=== PATIENT | female | born 1950 | race Hispanic/Latino ===

== ENCOUNTER → 2017-11-05 | Outpatient (CLI) | payer MEDICARE ==
[~2017-11-05] MED LIST: ALLO100T PO; AMITRIPTYLINE PO; AMLO5TAB5 PO; BENA40TA67 PO; CARB1DRO6 OU; FURO20TA4 PO; GLIP5TAB97 PO; INSLAN SQ; LIDOCAINE PATCH5% TD; MAGN400O17 PO; METFORMIN PO; PANT40SU PO; POTASSIUM CL ER PO; VICTOZA SQ; ZOLP10TA2 PO
== END | disposition home or self-care (01) ==
LOC: RAH 08:21
PROVIDERS: ATTEND Internal Medicine Gastroenterology
DX: K74.60 Unspecified cirrhosis of liver (principal); R16.1 Splenomegaly, not elsewhere classified
CPT/HCPCS: 76700; 93975

== ENCOUNTER → 2019-03-10 | Outpatient (CLI) | payer MEDICARE, OTHER ==
[2019-03-10 14:36] LABS: CREATININE 1.1 mg/dL (0.5-1.5)
== END | disposition home or self-care (01) ==
LOC: LAB 13:21
PROVIDERS: ATTEND Internal Medicine Gastroenterology
DX: R10.11 Right upper quadrant pain (principal)
CPT/HCPCS: 36415; 82565; 84520

== ENCOUNTER → 2019-07-16 | Outpatient (CLI) | payer MEDICARE | END | disposition home or self-care (01) | LOC: RAH 11:32 | PROVIDERS: ATTEND Internal Medicine Gastroenterology | DX: D73.4 Cyst of spleen (principal); R16.1 Splenomegaly, not elsewhere classified; K74.60 Unspecified cirrhosis of liver | CPT/HCPCS: 76700; 93975 ==

== ENCOUNTER → 2019-08-04 | Outpatient (CLI) | payer MEDICARE | END | disposition home or self-care (01) | LOC: RAH 11:03 | PROVIDERS: ATTEND Internal Medicine Gastroenterology | DX: R10.9 Unspecified abdominal pain (principal); R11.0 Nausea | CPT/HCPCS: 78264; A9541 ==

== ENCOUNTER 2020-05-09 15:20 | Inpatient (IN) | payer MEDICARE ==
[~2020-05-09] VITALS: Ht 149.9 cm; Wt 90.4 kg
[2020-05-09] MEDS ORDERED: ALBUTEROL INHALER 90MCG/INH IH ONE (15:50)
[2020-05-09] MEDS ORDERED: CEFTRIAXONE SODIUM 1 GM ONE (15:51)
[2020-05-09] MEDS ORDERED: AZITHROMYCIN 500MG+NS 250ML 250 ML IV ONE (15:51)
[2020-05-09] MEDS ORDERED: METHYLPREDNISOLONE SOD SUCC 125MG/2ML VIAL ONE (15:51)
[2020-05-09 15:58] LABS: BASOPHILS % (AUTO) 0.4 % (0.0-5.0); EOSINOPHILS % (AUTO) 3.8 % (0.0-8.0); HEMATOCRIT 32.1 % (36-48); LYMPHOCYTES % (AUTO) 16.2 % (21.0-51.0); MEAN CORPUSCULAR HEMOGLOBIN 28.7 pg (27.0-33.0); MEAN CORPUSCULAR HGB CONC 32.4 g/dL (32.0-36.0); MEAN CORPUSCULAR VOLUME 88.7 fL (79-99); MONOCYTES % (AUTO) 8.1 % (3.0-13.0); NEUTROPHILS % (AUTO) 70.9 % (40.0-77.0); PLATELET COUNT (AUTO) 50 K/uL (130-400); RED BLOOD CELL COUNT(AUTO) 3.62 MIL/uL (4.00-5.50); RED CELL DISTRIBUTION WIDTH 15.2 % (11.0-15.5); WHITE BLOOD COUNT (AUTO) 4.7 K/uL (4.8-10.8)
[2020-05-09 16:06] LABS: ABG BASE EXCESS 3.6 mmol/L (-2.0-3.0); ABG HCO3 29.5 mmol/L (21.0-28.0); ABG OXYGEN SATURATION 99.4 % (95.0-99.0); ABG PCO2 49 mmHg (32-45)
[2020-05-09 16:09] LABS: POTASSIUM 3.8 mmol/L (3.5-5.1)
[2020-05-09 16:14] LABS: BILIRUBIN,TOTAL 1.2 mg/dL (0.2-1.0); TOTAL PROTEIN, SERUM 6.2 g/dL (6.0-8.3)
[2020-05-09] MEDS ORDERED: LORAZEPAM 2 MG/ML 1 ML VIAL ONE (16:45)
[2020-05-09 17:00] LABS: PLATELET MORPHOLOGY COMMENT MARKED DECREASE
[2020-05-09] MEDS ORDERED: ENOXAPARIN SODIUM 100 MG/1 ML SQ ONE (17:25)
[2020-05-09 18:29] LABS: ABG BASE EXCESS 3.1 mmol/L (-2.0-3.0); ABG HCO3 28.7 mmol/L (21.0-28.0); ABG OXYGEN SATURATION 99.9 % (95.0-99.0); ABG PCO2 47 mmHg (32-45)
[2020-05-09] MEDS ORDERED: ACETAMINOPHEN 325 MG TAB PO PRN (19:45)
[2020-05-09] MEDS ORDERED: ONDANSETRON HCL 4 MG/2 ML VIAL IVP PRN (19:45)
[2020-05-09 21:55] VITALS: BP 132/96
[2020-05-09] MEDS: ZIPRASIDONE HCL 20 MG CAPSULE PO SCH (23:45)
[2020-05-10] VITALS: BP 134/72
[2020-05-10] MEDS: METHYLPREDNISOLONE SOD SUCC 125MG/2ML VIAL IVP SCH ×3 (00:08→15:51)
--- NOTE | 2020-05-10 00:30 | NUR ---
Patient received from ED accompanied by staff to room 305. Patient transferred from stretcher to bed and made comfortable. Assessment and nursing data base completed. Patient is on Bipap machine and appeared very anxious. [employer] Juan Miguel called and informed. PRN medication ordered, and patient medicated. Continue to monitor.
[2020-05-10] MEDS ORDERED: QUETIAPINE FUMARATE 25 MG TAB ONE (02:29)
[2020-05-10 04:00] VITALS: BP 119/61
--- NOTE | 2020-05-10 06:38 | NUR ---
Patient is resting comfortably post PRN Seroquel as ordered. No acute respiratory distress at this time. Patient is in stable condition.
[2020-05-10 08:00] VITALS: BP 131/78
[2020-05-10] MEDS: QUETIAPINE FUMARATE 25 MG TAB PO SCH ×2 (09:00→21:37)
[2020-05-10] MEDS: ZIPRASIDONE HCL 20 MG CAPSULE PO SCH (11:00)
[2020-05-10 12:00] VITALS: BP 138/81
[2020-05-10] MEDS ORDERED: MAGNESIUM HYDROXIDE 30 ML/UDCUP PO PRN (13:45)
[2020-05-10] MEDS ORDERED: ARTIFICAL TEARS SOL 15 ML OU PRN (13:45)
--- NOTE | 2020-05-10 15:14 | NUR ---
DCP CM unable to meet w/pt called son on facesheet, spoke to Jessee Nathan discussed dc plans. Pt is assist with ADL's, lives at home with provider Terripaulino Sotelo , son lives close by. Pt has oxygen equipments unable to recall company name and has provider 30hrs/wk through [employer]. Feels safe to go back home, as per son pt can dc w/son or back home w/provider, son able to assist with transportation and needs as necessary. DC plan to home once stable. CM to cont to follow up. Addendum: 05/10/20 at 1517 by NENA KAUR LVN CM Amended: Links added.
[2020-05-10 15:44] VITALS: BP 135/64
[2020-05-10] MEDS: CEFTRIAXONE SODIUM 1 GM IVP SCH (15:50)
[2020-05-10] MEDS ORDERED: AZITHROMYCIN 250 MG in SODIUM CHLORIDE 0.9% 100 ML IV SCH (16:00)
[2020-05-10] MEDS ORDERED: LACT10SO9 PO (16:05)
[2020-05-10] MEDS ORDERED: DIAZEPAM 5 MG TABLET PO PRN (16:30)
[2020-05-10] MEDS: INSULIN HUMULIN R 100 UNIT/ML 3ML SQ SCH ×2 (16:30→21:46)
[2020-05-10] MEDS ORDERED: SODIUM CHLORIDE 0.9% 500ML 500 ML IV ONE (17:39)
[2020-05-10] MEDS: METFORMIN HCL 500 MG TABLET PO SCH (17:58)
[2020-05-10] MEDS: AZITHROMYCIN 500MG+NS 250ML 250 ML IV SCH (17:59)
[2020-05-10] MEDS: FUROSEMIDE 10 MG/ML 2ML VIAL IV SCH (17:59)
[2020-05-10 19:00] VITALS: BP 110/60
[2020-05-10] MEDS: ZOLPIDEM TARTRATE 5 MG TAB PO SCH (21:37)
[2020-05-10] MEDS: AMITRIPTYLINE HCL 25 MG TABLET PO SCH (21:37)
[2020-05-10] MEDS: ALLOPURINOL 100 MG TABLET PO SCH (21:37)
[2020-05-11] VITALS: BP 106/50
[2020-05-11] MEDS: FUROSEMIDE 10 MG/ML 2ML VIAL IV SCH ×3 (03:12→22:19)
[2020-05-11 04:00] VITALS: BP 125/77
[2020-05-11] MEDS: INSULIN HUMULIN R 100 UNIT/ML 3ML SQ SCH ×4 (06:07→22:23)
[2020-05-11 06:11] LABS: HEMATOCRIT 29.9 % (36-48); LYMPHOCYTES % (AUTO) 12.2 % (21.0-51.0); MEAN CORPUSCULAR HEMOGLOBIN 28.8 pg (27.0-33.0); MEAN CORPUSCULAR HGB CONC 32.8 g/dL (32.0-36.0); MEAN CORPUSCULAR VOLUME 87.9 fL (79-99); MONOCYTES % (AUTO) 6.3 % (3.0-13.0); PLATELET COUNT (AUTO) 49 K/uL (130-400); RED CELL DISTRIBUTION WIDTH 14.9 % (11.0-15.5); WHITE BLOOD COUNT (AUTO) 3.8 K/uL (4.8-10.8)
[2020-05-11 06:26] LABS: CREATININE 1.2 mg/dL (0.5-1.5); MAGNESIUM 1.7 mg/dL (1.80-2.40); PHOSPHORUS 4.5 mg/dL (2.5-4.9); POTASSIUM 4.4 mmol/L (3.5-5.1)
[2020-05-11 07:10] LABS: ABG BASE EXCESS 3.1 mmol/L (-2.0-3.0); ABG HCO3 28.9 mmol/L (21.0-28.0); ABG OXYGEN SATURATION 98.9 % (95.0-99.0); ABG PCO2 49 mmHg (32-45)
[2020-05-11 08:27] VITALS: BP 119/65
[2020-05-11] MEDS ORDERED: FUROSEMIDE 20 MG TABLET PO SCH (09:00)
[2020-05-11] MEDS: PANTOPRAZOLE SODIUM 40 MG TABLET.DR PO SCH (10:07)
[2020-05-11] MEDS: AMLODIPINE BESYLATE 5 MG TAB PO SCH (10:08)
[2020-05-11] MEDS: GLIPIZIDE XL 5MG TAB PO SCH (10:08)
[2020-05-11] MEDS: METFORMIN HCL 500 MG TABLET PO SCH ×2 (10:08→16:42)
[2020-05-11] MEDS: BENAZEPRIL HCL 10 MG TABLET PO SCH (10:08)
[2020-05-11] MEDS: POTASSIUM CHLORIDE 10 MEQ/TAB.SA PO SCH (10:09)
[2020-05-11] MEDS: DEXAMETHASONE SOD PHOSPHATE 4 MG/ML 1ML VIAL IVP SCH (10:09)
[2020-05-11] MEDS: LIDOCAINE 5% TOPICAL PATCH TP SCH (10:10)
[2020-05-11] MEDS: ALLOPURINOL 100 MG TABLET PO SCH ×2 (10:10→22:18)
[2020-05-11 12:17] VITALS: BP 114/60
[2020-05-11] MEDS ORDERED: LACTULOSE 20 GM/30 ML UDCUP PO PRN (13:00)
[2020-05-11] MEDS ORDERED: FENT1PAT25 TD (13:12)
[2020-05-11] MEDS: CEFTRIAXONE SODIUM 1 GM IVP SCH (14:32)
[2020-05-11] MEDS: MAGNESIUM 2GM PREMIX 50ML 50 ML IV PRN (14:32)
--- NOTE | 2020-05-11 14:50 | NUR ---
TRANSFER REPORT CALLED TO [facility] ON 3RD FLOOR, ROOM READY; PT AWARE OF TRANSFER TO NON COVID FLOOR AND STATES APPROVAL.
[2020-05-11] MEDS: AZITHROMYCIN 500MG+NS 250ML 250 ML IV SCH (16:42)
[2020-05-11 20:05] VITALS: BP 129/72
[2020-05-11] MEDS: ZOLPIDEM TARTRATE 5 MG TAB PO SCH (22:18)
[2020-05-11] MEDS: AMITRIPTYLINE HCL 25 MG TABLET PO SCH (22:18)
[2020-05-11] MEDS: QUETIAPINE FUMARATE 25 MG TAB PO SCH (22:18)
[2020-05-11 23:38] VITALS: BP 126/61
[2020-05-12 03:44] VITALS: BP 124/62
[2020-05-12 05:14] LABS: HEMATOCRIT 28.9 % (36-48); MEAN CORPUSCULAR HEMOGLOBIN 29.2 pg (27.0-33.0); MEAN CORPUSCULAR HGB CONC 33.6 g/dL (32.0-36.0); RED BLOOD CELL COUNT(AUTO) 3.32 MIL/uL (4.00-5.50); RED CELL DISTRIBUTION WIDTH 14.9 % (11.0-15.5); WHITE BLOOD COUNT (AUTO) 5.6 K/uL (4.8-10.8)
[2020-05-12 05:39] LABS: CREATININE 1.2 mg/dL (0.5-1.5); MAGNESIUM 2.2 mg/dL (1.80-2.40); POTASSIUM 3.9 mmol/L (3.5-5.1)
[2020-05-12] MEDS: INSULIN HUMULIN R 100 UNIT/ML 3ML SQ SCH ×4 (06:47→20:40)
[2020-05-12 07:30] VITALS: BP 111/68
[2020-05-12] MEDS ORDERED: FENTANYL 50 MCG/HR PATCH TD SCH (08:00)
[2020-05-12] MEDS: GLIPIZIDE XL 5MG TAB PO SCH (09:57)
[2020-05-12] MEDS: AMLODIPINE BESYLATE 5 MG TAB PO SCH (09:58)
[2020-05-12] MEDS: POTASSIUM CHLORIDE 10 MEQ/TAB.SA PO SCH (09:58)
[2020-05-12] MEDS: ALLOPURINOL 100 MG TABLET PO SCH ×2 (09:58→20:39)
[2020-05-12] MEDS: PANTOPRAZOLE SODIUM 40 MG TABLET.DR PO SCH (09:58)
[2020-05-12] MEDS: METFORMIN HCL 500 MG TABLET PO SCH ×2 (09:58→18:15)
[2020-05-12] MEDS: FUROSEMIDE 10 MG/ML 2ML VIAL IV SCH ×2 (09:59→18:15)
[2020-05-12] MEDS: DEXAMETHASONE SOD PHOSPHATE 4 MG/ML 1ML VIAL IVP SCH (09:59)
[2020-05-12] MEDS: CEFTRIAXONE SODIUM 1 GM IVP SCH (10:00)
[2020-05-12] MEDS: LIDOCAINE 5% TOPICAL PATCH TP SCH (10:00)
[2020-05-12] MEDS: AZITHROMYCIN 500MG+NS 250ML 250 ML IV SCH (10:01)
[2020-05-12 11:00] VITALS: BP 117/75
[2020-05-12] MEDS ORDERED: ALBUTEROL INHALER 90MCG/INH IH PRN (14:00)
[2020-05-12 16:00] VITALS: BP 120/58
[2020-05-12] MEDS: BENAZEPRIL HCL 10 MG TABLET PO SCH (18:15)
[2020-05-12 19:49] VITALS: BP 113/51
[2020-05-12] MEDS: ZOLPIDEM TARTRATE 5 MG TAB PO SCH (20:38)
[2020-05-12] MEDS: AMITRIPTYLINE HCL 25 MG TABLET PO SCH (20:38)
[2020-05-12] MEDS: QUETIAPINE FUMARATE 25 MG TAB PO SCH (20:41)
[2020-05-12 23:43] VITALS: BP 109/49
[2020-05-13 04:00] VITALS: BP 113/53
[2020-05-13 04:06] LABS: HEMATOCRIT 28.8 % (36-48); MEAN CORPUSCULAR HGB CONC 33.7 g/dL (32.0-36.0); RED BLOOD CELL COUNT(AUTO) 3.35 MIL/uL (4.00-5.50); RED CELL DISTRIBUTION WIDTH 14.6 % (11.0-15.5); WHITE BLOOD COUNT (AUTO) 3.8 K/uL (4.8-10.8)
[2020-05-13 04:23] LABS: MAGNESIUM 1.9 mg/dL (1.80-2.40); PHOSPHORUS 2.7 mg/dL (2.5-4.9)
[2020-05-13] MEDS: MAGNESIUM 2GM PREMIX 50ML 50 ML IV PRN (04:31)
[2020-05-13 07:21] VITALS: BP 121/56
[2020-05-13] MEDS: INSULIN HUMULIN R 100 UNIT/ML 3ML SQ SCH ×4 (07:30→23:10)
[2020-05-13] MEDS: DEXAMETHASONE SOD PHOSPHATE 4 MG/ML 1ML VIAL IVP SCH (09:19)
[2020-05-13] MEDS: FUROSEMIDE 10 MG/ML 2ML VIAL IV SCH ×2 (09:21→23:13)
[2020-05-13] MEDS: LIDOCAINE 5% TOPICAL PATCH TP SCH (09:21)
[2020-05-13] MEDS: ALLOPURINOL 100 MG TABLET PO SCH ×2 (09:22→20:04)
[2020-05-13] MEDS: POTASSIUM CHLORIDE 10 MEQ/TAB.SA PO SCH (09:22)
[2020-05-13] MEDS: GLIPIZIDE XL 5MG TAB PO SCH (09:22)
[2020-05-13] MEDS: METFORMIN HCL 500 MG TABLET PO SCH ×2 (09:22→16:49)
[2020-05-13] MEDS: AMLODIPINE BESYLATE 5 MG TAB PO SCH (09:22)
[2020-05-13] MEDS: PANTOPRAZOLE SODIUM 40 MG TABLET.DR PO SCH (09:23)
[2020-05-13] MEDS: BENAZEPRIL HCL 10 MG TABLET PO SCH (09:23)
[2020-05-13 10:31] VITALS: BP 119/61
[2020-05-13] MEDS: CEFTRIAXONE SODIUM 1 GM IVP SCH (15:05)
[2020-05-13 15:57] VITALS: BP 121/59
[2020-05-13] MEDS: AZITHROMYCIN 500MG+NS 250ML 250 ML IV SCH (16:50)
[2020-05-13 19:00] VITALS: BP 123/53
[2020-05-13] MEDS: LACTULOSE 20 GM/30 ML UDCUP PO SCH (20:03)
[2020-05-13] MEDS: ZOLPIDEM TARTRATE 5 MG TAB PO SCH (20:04)
[2020-05-13] MEDS: QUETIAPINE FUMARATE 25 MG TAB PO SCH (20:04)
[2020-05-13] MEDS: AMITRIPTYLINE HCL 25 MG TABLET PO SCH (20:04)
[2020-05-13 23:31] VITALS: BP 149/73
[2020-05-14 03:38] VITALS: BP 111/65
[2020-05-14 04:16] LABS: HEMATOCRIT 30.5 % (36-48); MEAN CORPUSCULAR HEMOGLOBIN 28.9 pg (27.0-33.0); MEAN CORPUSCULAR HGB CONC 33.1 g/dL (32.0-36.0); MEAN CORPUSCULAR VOLUME 87.4 fL (79-99); RED BLOOD CELL COUNT(AUTO) 3.49 MIL/uL (4.00-5.50); RED CELL DISTRIBUTION WIDTH 14.7 % (11.0-15.5); WHITE BLOOD COUNT (AUTO) 3.9 K/uL (4.8-10.8)
[2020-05-14 04:37] LABS: CREATININE 1.1 mg/dL (0.5-1.5); POTASSIUM 3.6 mmol/L (3.5-5.1)
[2020-05-14] MEDS: INSULIN HUMULIN R 100 UNIT/ML 3ML SQ SCH ×3 (06:25→16:23)
[2020-05-14 07:54] VITALS: BP 126/52
[2020-05-14] MEDS: PANTOPRAZOLE SODIUM 40 MG TABLET.DR PO SCH (08:39)
[2020-05-14] MEDS: FUROSEMIDE 10 MG/ML 2ML VIAL IV SCH (08:39)
[2020-05-14] MEDS: LACTULOSE 20 GM/30 ML UDCUP PO SCH (08:39)
[2020-05-14] MEDS: GLIPIZIDE XL 5MG TAB PO SCH (08:39)
[2020-05-14] MEDS: ALLOPURINOL 100 MG TABLET PO SCH (08:40)
[2020-05-14] MEDS: METFORMIN HCL 500 MG TABLET PO SCH ×2 (08:40→17:02)
[2020-05-14] MEDS: POTASSIUM CHLORIDE 10 MEQ/TAB.SA PO SCH (08:41)
[2020-05-14] MEDS: LIDOCAINE 5% TOPICAL PATCH TP SCH (08:41)
[2020-05-14 09:40] VITALS: BP 129/55
[2020-05-14 10:30] VITALS: BP 121/68
[2020-05-14] MEDS: BENAZEPRIL HCL 10 MG TABLET PO SCH (12:34)
[2020-05-14] MEDS: AMLODIPINE BESYLATE 5 MG TAB PO SCH (12:34)
[2020-05-14] MEDS: CEFTRIAXONE SODIUM 1 GM IVP SCH (14:52)
[2020-05-14 15:59] VITALS: BP 114/49
[2020-05-14] MEDS: AZITHROMYCIN 500MG+NS 250ML 250 ML IV SCH (17:02)
--- NOTE | 2020-05-14 18:40 | NUR ---
DISCHARGE PATIENT GIVEN DISCHARGE INSTRUCTIONS VIA TEACH BACK. NO RX GIVEN. PATIENT TO CONTINUE WITH HOME MEDICATIONS AND FOLLOW UP WITH DR. GUEVARA AND PRESTON. PATIENT VOICED UNDERSTANDING AT THIS TIME. PATIENT STABLE AT THIS TIME.
== END 2020-05-14 19:00 | disposition home or self-care (01) | DRG 193 ==
LOC: EDH 15:20 → OBSVTOIN 18:57 → EDHIP 18:57 → 3BH 22:17 → 4CH 05-10 13:12 → 3AH 05-11 15:17
PROVIDERS: ADMIT Internal Medicine Critical Care Medicine; ATTEND Internal Medicine Critical Care Medicine
PROC: 5A09457 Assistance with Respiratory Ventilation, 24-96 Consecutive Hours, Continuous Positive Airway Pressure (ICD-10-PCS; principal; 2020-05-09)
PROC: 5A09357 Assistance with Respiratory Ventilation, Less than 24 Consecutive Hours, Continuous Positive Airway Pressure (ICD-10-PCS; 2020-05-11)
PROC: 5A09357 Assistance with Respiratory Ventilation, Less than 24 Consecutive Hours, Continuous Positive Airway Pressure (ICD-10-PCS; 2020-05-12)
PROC: 5A09357 Assistance with Respiratory Ventilation, Less than 24 Consecutive Hours, Continuous Positive Airway Pressure (ICD-10-PCS; 2020-05-13)
PROC: 5A09357 Assistance with Respiratory Ventilation, Less than 24 Consecutive Hours, Continuous Positive Airway Pressure (ICD-10-PCS; 2020-05-14)
DX: J18.9 Pneumonia, unspecified organism (principal); I50.33 Acute on chronic diastolic (congestive) heart failure; J96.21 Acute and chronic respiratory failure with hypoxia; J44.0 Chronic obstructive pulmonary disease with (acute) lower respiratory infection; D61.818 Other pancytopenia; Z68.41 Body mass index [BMI] 40.0-44.9, adult; K74.60 Unspecified cirrhosis of liver; I11.0 Hypertensive heart disease with heart failure; E11.9 Type 2 diabetes mellitus without complications; E03.9 Hypothyroidism, unspecified; E66.9 Obesity, unspecified; G89.29 Other chronic pain; I34.0 Nonrheumatic mitral (valve) insufficiency; G47.33 Obstructive sleep apnea (adult) (pediatric); Z20.828 Contact with and (suspected) exposure to other viral communicable diseases; W18.39XA Other fall on same level, initial encounter; Y93.89 Activity, other specified; Y92.091 Bathroom in other non-institutional residence as the place of occurrence of the external cause; Y99.8 Other external cause status; Z99.81 Dependence on supplemental oxygen; Z79.4 Long term (current) use of insulin; Z79.84 Long term (current) use of oral hypoglycemic drugs; Z79.899 Other long term (current) drug therapy
CPT/HCPCS: 36415; 36600; 71045; 80048; 80053; 82550; 82803; 82948; 83605; 83735; 84100; 84484; 85025; 85027; 85378; 86140; 87426; 93005; 93306; 93356; 94660; 99291; G0378; J0456; J0696; J1100; J1650; J1815; J1940; J2060; J2930; J3475; J7040; U0003

== ENCOUNTER 2020-05-27 13:37 | Inpatient (IN) | payer MEDICARE ==
[~2020-05-27 13:37] MED LIST changes: +FENT1PAT25 TD; +LACT10SO9 PO
[2020-05-27 14:02] LABS: ABG HCO3 24.4 mmol/L (21.0-28.0); ABG OXYGEN SATURATION 97.1 % (95.0-99.0); ABG PCO2 39 mmHg (32-45)
[2020-05-27 14:10] LABS: BASOPHILS % (AUTO) 0.5 % (0.0-5.0); EOSINOPHILS % (AUTO) 1.1 % (0.0-8.0); HEMATOCRIT 30.2 % (36-48); LYMPHOCYTES % (AUTO) 9.9 % (21.0-51.0); MEAN CORPUSCULAR HEMOGLOBIN 28.7 pg (27.0-33.0); MEAN CORPUSCULAR HGB CONC 33.1 g/dL (32.0-36.0); MEAN CORPUSCULAR VOLUME 86.8 fL (79-99); MONOCYTES % (AUTO) 3.7 % (3.0-13.0); NEUTROPHILS % (AUTO) 84.6 % (40.0-77.0); PLATELET COUNT (AUTO) 35 K/uL (130-400); RED BLOOD CELL COUNT(AUTO) 3.48 MIL/uL (4.00-5.50); RED CELL DISTRIBUTION WIDTH 15.7 % (11.0-15.5); WHITE BLOOD COUNT (AUTO) 4.4 K/uL (4.8-10.8)
[2020-05-27 14:18] LABS: CREATININE 0.9 mg/dL (0.5-1.5); POTASSIUM 3.9 mmol/L (3.5-5.1)
[2020-05-27 14:23] LABS: ALBUMIN 3.1 g/dL (3.5-5.0); BILIRUBIN,TOTAL 1.6 mg/dL (0.2-1.0); CRP QUANTITATIVE 20.3 mg/L (0.00-9.0); TOTAL PROTEIN, SERUM 6.1 g/dL (6.0-8.3)
[2020-05-27 14:24] LABS: INR 1.08 (0.85-1.15); PARTIAL THROMBOPLASTIN TIME 27.2 SEC (26.3-35.5); PROTHROMBIN TIME 11.6 SEC (9.6-11.6)
[2020-05-27 14:37] LABS: FERRITIN 63 ng/mL (15-150)
[2020-05-27] MEDS ORDERED: FUROSEMIDE 10 MG/ML 4ML VIAL ONE ×2 (14:38→20:51)
[2020-05-27 14:42] LABS: APPEARANCE,URINE Clear (CLEAR); BILIRUBIN,URINE Negative (NEGATIVE); COLOR,URINE Yellow (YELLOW); GLUCOSE, URINE (UA) Negative (NEGATIVE); KETONES,URINE Negative (NEGATIVE); LEUKOCYTE ESTERASE ,URINE Negative (NEGATIVE); NITRATE,URINE Negative (NEGATIVE); OCCULT BLOOD,URINE Nonhemolyzed Trace (NEGATIVE); PH,URINE 6.5 (5.0-8.0); PROTEIN,URINE Negative (NEGATIVE); UROBILINOGEN,URINE 0.2 mg/dL (0.2-1.0)
[2020-05-27 15:16] LABS: BACTERIA,URINE Rare /HPF (None Seen); RBC,URINE 0-1 /HPF (0-1); SQUAMOUS EPITHELIAL CELL,UR Rare /HPF (0-2); WBC,URINE 0-1 /HPF (0-1)
[2020-05-27 15:29] LABS: ERYTHROCYTE SEDIMENTATION RATE 18 MM/HR (0-30)
[2020-05-27] MEDS ORDERED: LACTULOSE 20 GM/30 ML UDCUP PO PRN (15:30)
[2020-05-27] MEDS ORDERED: HYDROCODONE/ACETAMINOPHEN 5/325 MG TAB PO PRN (15:30)
[2020-05-27] MEDS ORDERED: IPRATROPIUM/ALBUTEROL SULFATE 3 ML SOLUTION IH PRN (15:30)
[2020-05-27] MEDS ORDERED: ACETAMINOPHEN 325 MG TAB PO PRN ×2 (15:30)
[2020-05-27] MEDS ORDERED: METOPROLOL TARTRATE 1 MG/ML 5ML VIAL IV PRN (15:30)
[2020-05-27] MEDS ORDERED: GUAIFENESIN-DM 200/20 MG 10 ML PO PRN (15:30)
[2020-05-27] MEDS ORDERED: ALPRAZOLAM 0.25 MG TABLET PO PRN (15:30)
[2020-05-27] MEDS ORDERED: HYDROMORPHONE HCL 2 MG/ML VIAL IVP PRN (15:30)
[2020-05-27] MEDS ORDERED: CLONIDINE HCL 0.1 MG TABLET PO PRN (15:30)
[2020-05-27] MEDS ORDERED: HYDRALAZINE HCL 20 MG/ML VIAL IV PRN (15:30)
[2020-05-27 15:31] LABS: PLATELET MORPHOLOGY COMMENT MARKED DECREASE
[2020-05-27] MEDS ORDERED: FAMOTIDINE 20MG TAB 20 MG TAB ONE (20:51)
[2020-05-27] MEDS ORDERED: ENOXAPARIN SODIUM 30 MG/0.3 ML SQ ONE (20:52)
[2020-05-27 23:00] VITALS: BP 139/54
[2020-05-28] MEDS: FUROSEMIDE 10 MG/ML 4ML VIAL IVP SCH ×3 (01:19→21:32)
[2020-05-28] MEDS: LACTULOSE 20 GM/30 ML UDCUP PO SCH ×2 (01:20→21:32)
[2020-05-28] MEDS: FAMOTIDINE 20MG TAB 20 MG TAB PO SCH ×3 (01:21→21:31)
[2020-05-28 03:00] VITALS: BP 117/62
[2020-05-28 07:32] VITALS: BP 111/87
[2020-05-28] MEDS: PHARMACY COMMUNICATION MISC SCH ×4 (08:00→15:43)
[2020-05-28 08:56] LABS: BASOPHILS % (AUTO) 0.4 % (0.0-5.0); EOSINOPHILS % (AUTO) 2.5 % (0.0-8.0); HEMATOCRIT 27.9 % (36-48); MEAN CORPUSCULAR HEMOGLOBIN 29.5 pg (27.0-33.0); MEAN CORPUSCULAR HGB CONC 33.7 g/dL (32.0-36.0); MEAN CORPUSCULAR VOLUME 87.5 fL (79-99); MONOCYTES % (AUTO) 8.7 % (3.0-13.0); NEUTROPHILS % (AUTO) 70.2 % (40.0-77.0); PLATELET COUNT (AUTO) 35 K/uL (130-400); RED BLOOD CELL COUNT(AUTO) 3.19 MIL/uL (4.00-5.50); RED CELL DISTRIBUTION WIDTH 15.6 % (11.0-15.5); WHITE BLOOD COUNT (AUTO) 4.7 K/uL (4.8-10.8)
[2020-05-28] MEDS ORDERED: ENOXAPARIN SODIUM 40 MG/0.4 ML SYRINGE SQ SCH (09:00)
[2020-05-28] MEDS ORDERED: ENOXAPARIN SODIUM 30 MG/0.3 ML SQ SCH (09:00)
[2020-05-28 09:08] LABS: POTASSIUM 3.4 mmol/L (3.5-5.1)
[2020-05-28 11:21] VITALS: BP 100/67
--- NOTE | 2020-05-28 15:06 | NUR ---
D/C PLAN CM attempted phone call to room. No answer. CM spoke to son named Jessee regarding d/c planning. Patient is a readmission from less than 3 weeks ago. States no changes in home setting. Patient lives at home with provider Terri Sotelo , son lives close by. Pt has home oxygen and has provider about 30hrs/wk through [employer]. Feels safe to go back home. CM offered short term snf/rehab as possible d/c option. Son is able to assist with transportation. DC plan to home once stable. CM to follow up. Addendum: 05/28/20 at 1510 by HEMA JAMISON Amended: Links added.
[2020-05-28 15:45] VITALS: BP 115/45
[2020-05-28] MEDS ORDERED: LORAZEPAM 2 MG/ML 1 ML VIAL IVP ONE (16:10)
[2020-05-28 19:00] VITALS: BP 131/67
[2020-05-28 23:00] VITALS: BP 109/64
--- NOTE | 2020-05-29 02:33 | NUR ---
Anxiety Pt unable to sleep, very anxious, stated room was too hot; applied 2 cold packs to neck area; administered PRN medication
[2020-05-29 03:00] VITALS: BP 158/81
[2020-05-29] MEDS ORDERED: POTASSIUM CHLORIDE 10% ELIXIR 20 MEQ/15 ML UDCUP PO PRN (07:15)
[2020-05-29] MEDS ORDERED: LIDOCAINE HCL-MPF 1% 2ML VIAL IJ PRN (07:15)
[2020-05-29] MEDS ORDERED: PHARMACY COMMUNICATION MISC SCH (07:15)
[2020-05-29] MEDS ORDERED: POTASSIUM CHLORIDE 20MEQ/100ML 100 ML IV PRN (07:15)
[2020-05-29 07:55] VITALS: BP 112/47
[2020-05-29] MEDS: PHARMACY COMMUNICATION MISC SCH ×2 (08:00)
[2020-05-29 08:15] LABS: ABG BASE EXCESS 5.4 mmol/L (-2.0-3.0); ABG HCO3 30.7 mmol/L (21.0-28.0); ABG OXYGEN SATURATION 98.7 % (95.0-99.0); ABG PCO2 47 mmHg (32-45)
[2020-05-29 10:09] LABS: BASOPHILS % (AUTO) 0.5 % (0.0-5.0); EOSINOPHILS % (AUTO) 2.6 % (0.0-8.0); HEMATOCRIT 27.2 % (36-48); LYMPHOCYTES % (AUTO) 15.4 % (21.0-51.0); MEAN CORPUSCULAR HEMOGLOBIN 28.8 pg (27.0-33.0); MEAN CORPUSCULAR HGB CONC 33.1 g/dL (32.0-36.0); MEAN CORPUSCULAR VOLUME 87.2 fL (79-99); MONOCYTES % (AUTO) 8.9 % (3.0-13.0); NEUTROPHILS % (AUTO) 72.1 % (40.0-77.0); PLATELET COUNT (AUTO) 28 K/uL (130-400); RED BLOOD CELL COUNT(AUTO) 3.12 MIL/uL (4.00-5.50); RED CELL DISTRIBUTION WIDTH 15.9 % (11.0-15.5); WHITE BLOOD COUNT (AUTO) 4.3 K/uL (4.8-10.8)
[2020-05-29 10:29] LABS: ALBUMIN 2.5 g/dL (3.5-5.0); BILIRUBIN,TOTAL 1.5 mg/dL (0.2-1.0); POTASSIUM 3.1 mmol/L (3.5-5.1); TOTAL PROTEIN, SERUM 5.2 g/dL (6.0-8.3)
[2020-05-29] MEDS ORDERED: LIDOCAINE TD PRN (11:00)
[2020-05-29] MEDS ORDERED: DIAZEPAM 5 MG TABLET PO SCH (11:00)
[2020-05-29] MEDS ORDERED: LACTULOSE 20 GM/30 ML UDCUP PO PRN (11:00)
[2020-05-29] MEDS: FAMOTIDINE 20MG TAB 20 MG TAB PO SCH ×2 (11:17→21:25)
[2020-05-29] MEDS: POTASSIUM CHLORIDE 20 MEQ ERTAB PO PRN ×3 (11:18→23:18)
[2020-05-29] MEDS: FUROSEMIDE 10 MG/ML 4ML VIAL IVP SCH ×2 (11:18→21:26)
[2020-05-29 11:42] VITALS: BP 127/68
[2020-05-29] MEDS ORDERED: IOHEXOL 350 MG/ML 100ML INFUS..BTL IV ONE (12:24)
[2020-05-29 15:11] VITALS: BP 134/73
[2020-05-29] MEDS ORDERED: MAGNESIUM 2GM PREMIX 50ML 50 ML IV PRN (15:30)
[2020-05-29] MEDS: LIDOCAINE 5% TOPICAL PATCH TP SCH (16:23)
[2020-05-29] MEDS: SPIRONOLACTONE 25 MG TAB PO SCH (16:24)
[2020-05-29] MEDS: INSULIN HUMULIN R 100 UNIT/ML 3ML SQ SCH ×2 (16:30→21:00)
[2020-05-29] MEDS: DIAZEPAM 5 MG TABLET PO PRN (17:17)
[2020-05-29 18:09] LABS: ABG BASE EXCESS 4.7 mmol/L (-2.0-3.0); ABG OXYGEN SATURATION 99.8 % (95.0-99.0); ABG PCO2 46 mmHg (32-45)
[2020-05-29] MEDS ORDERED: FUROSEMIDE 10 MG/ML 2ML VIAL IV SCH (19:00)
--- NOTE | 2020-05-29 20:13 | NUR ---
Patient was in distress using her accessory muscles tiring out at the moment I arrive to her room 229. Diandra DONATO put in order for ABG as she question the patient condition. I explain to Diandra how the PO2 was 412mmHg on the partial NRB which is extremely high for her vs on the Bipap. The patients breath sound are crackly due to fluid retention which is making her go into anxiety and distress affecting her lung expansion. The Patient is a COPD with HS Cpap and should not be on a NRB mask due to CO2 retention. Addendum: 05/29/20 at 2043 by NORAH WRIGHT RT Amended: Links added.
[2020-05-29 20:20] VITALS: BP 125/63
[2020-05-29] MEDS ORDERED: NON-FORMULARY MEDICATION 1 EACH (Zolpidem Tartrate (Ambien) 10 MG) PO SCH (21:00)
[2020-05-29] MEDS: LACTULOSE 20 GM/30 ML UDCUP PO SCH (21:00)
[2020-05-29] MEDS ORDERED: AMITRIPTYLINE 50 MG PO SCH (21:00)
[2020-05-29] MEDS ORDERED: AMITRIPTYLINE HCL 25 MG TABLET PO SCH (21:00)
[2020-05-30] VITALS: BP 140/76
[2020-05-30] MEDS: DIAZEPAM 5 MG TABLET PO PRN (01:15)
[2020-05-30 04:00] VITALS: BP 113/40
[2020-05-30 05:16] LABS: INR 1.11 (0.85-1.15); PARTIAL THROMBOPLASTIN TIME 27.3 SEC (26.3-35.5); PROTHROMBIN TIME 11.9 SEC (9.6-11.6)
[2020-05-30 06:16] LABS: MAGNESIUM 1.3 mg/dL (1.80-2.40); POTASSIUM 3.6 mmol/L (3.5-5.1)
[2020-05-30] MEDS: INSULIN HUMULIN R 100 UNIT/ML 3ML SQ SCH ×3 (06:25→16:30)
--- NOTE | 2020-05-30 08:00 | NUR ---
UPON MY ASSESSMENT THIS AM PATIENT IS IN CPAP DESPITE PROVIDER WRITTEN ORDER ENTERED BY THIS RN. PER RT NOTES THIS RN RECEIVED EXPLANATION ABOUT ABG'S VALUES. THIS INFORMATION IS INACCURATE, AT THIS TIME THIS RN HAVE NOT RECEIVED ANY EXPLANATION ON RT OVERRIDING PA ORDERS IN REGARDS TO PATIENT OXYGEN DEVICE OR ABG VALUES.
[2020-05-30] MEDS ORDERED: POTASSIUM CL 10 MEQ PO SCH (09:00)
[2020-05-30] MEDS ORDERED: AMLODIPINE BESYLATE 5 MG TAB PO SCH (09:00)
[2020-05-30] MEDS ORDERED: GLY OU PRN (09:00)
[2020-05-30] MEDS ORDERED: CARBOXYMETHYL OU PRN (09:00)
[2020-05-30] MEDS ORDERED: POTASSIUM CHLORIDE 10 MEQ/TAB.SA PO SCH (09:00)
[2020-05-30] MEDS ORDERED: POLY80 OU PRN (09:00)
[2020-05-30] MEDS: LIDOCAINE 5% TOPICAL PATCH TP SCH (10:11)
[2020-05-30] MEDS: FUROSEMIDE 10 MG/ML 4ML VIAL IVP SCH (10:11)
[2020-05-30] MEDS: SPIRONOLACTONE 25 MG TAB PO SCH (10:12)
[2020-05-30] MEDS: FAMOTIDINE 20MG TAB 20 MG TAB PO SCH (10:12)
[2020-05-30 10:24] VITALS: BP 156/67
[2020-05-30] MEDS ORDERED: FURO40TA7 PO (16:24)
[2020-05-30 16:41] VITALS: BP 136/80
== END 2020-05-30 17:30 | disposition home or self-care (01) | DRG 291 ==
LOC: EDH 13:37 → OBSVTOIN 15:02 → EDHIP 15:02 → 2AH 23:59
PROVIDERS: ADMIT Internal Medicine; ATTEND Internal Medicine
PROC: 5A09457 Assistance with Respiratory Ventilation, 24-96 Consecutive Hours, Continuous Positive Airway Pressure (ICD-10-PCS; principal; 2020-05-27)
PROC: 5A09357 Assistance with Respiratory Ventilation, Less than 24 Consecutive Hours, Continuous Positive Airway Pressure (ICD-10-PCS; 2020-05-29)
DX: I11.0 Hypertensive heart disease with heart failure (principal); J96.21 Acute and chronic respiratory failure with hypoxia; J44.1 Chronic obstructive pulmonary disease with (acute) exacerbation; D61.818 Other pancytopenia; I50.33 Acute on chronic diastolic (congestive) heart failure; K74.60 Unspecified cirrhosis of liver; I34.0 Nonrheumatic mitral (valve) insufficiency; E03.9 Hypothyroidism, unspecified; E11.9 Type 2 diabetes mellitus without complications; E66.01 Morbid (severe) obesity due to excess calories; G47.33 Obstructive sleep apnea (adult) (pediatric); R16.1 Splenomegaly, not elsewhere classified; Z20.828 Contact with and (suspected) exposure to other viral communicable diseases; F41.9 Anxiety disorder, unspecified; Z79.4 Long term (current) use of insulin; Z87.01 Personal history of pneumonia (recurrent); Z99.81 Dependence on supplemental oxygen; Z80.3 Family history of malignant neoplasm of breast
CPT/HCPCS: 36415; 36600; 71045; 71275; 74176; 80048; 80053; 81001; 82140; 82435; 82550; 82728; 82803; 82947; 82948; 83605; 83735; 83880; 84132; 84145; 84146; 84295; 84484; 85018; 85025; 85610; 85651; 85730; 86140; 87040; 87426; 93005; 93970; 94660; G0378; J1650; J1940; J2060; Q9967; U0003